=== PATIENT | female | born 1950 | race African-American/Black ===

== ENCOUNTER 2017-04-21 18:35 | Inpatient (IN) | payer OTHER ==
[~2017-04-21] VITALS: Ht 157.5 cm; Wt 126.3 kg
[~2017-04-21 18:35] MED LIST: COMPAZINE10 MG PO; Decadron PO; Diabeta,Micronase PO; GABAPENTIN300 MG PO; GLYBURIDE1.25 MG PO; Glucophage PO; Keppra PO; LISINOPRIL-HCT1 EACH PO; PERCOCET 5/31 TABLET PO; Tylenol/Codeine #3 PO; Zestoretic,Prinzide PO
[2017-04-21 18:56] LABS: EOSINOPHIL (%) 0.6 % (0-5); EOSINOPHIL COUNT 0.1 K/uL (0-0.3); HEMATOCRIT 33.8 % (36.0-46.0); IMMATURE GRANULOCYTE (%) 0.7 % (0.0-0.7); IMMATURE GRANULOCYTE COUNT 0.1 K/uL; INSTRUMENT ABS NEUTROPHIL CT 11.5 K/uL; LYMPHOCYTE COUNT 2.3 K/uL (1.0-2.8); MCH 24.1 PG (29.0-34.0); MCHC 29.3 G/DL (30.0-36.0); MCV 82.2 FL (83-99); MEAN PLAT.VOLUME 10.5 uM^3 (9.5-12.4); MONOCYTE (%) 4.6 % (3-12); MONOCYTE COUNT 0.7 K/uL (0-0.8); NEUTROPHIL (%) 78.5 % (45-76); NEUTROPHIL COUNT 11.5 K/uL (1.8-6.4); PLATELET COUNT 254 K/uL (156-360); RBC DIS.WIDTH-CV 14.9 % (11.8-14.6); RED BLOOD COUNT 4.11 M/uL (3.80-5.20); WHITE BLOOD COUNT 14.7 K/uL (4.1-10.2)
[2017-04-21 19:15] LABS: AMYLASE 87 IU/L (1-118); CHLORIDE 109 mEq/L (99-109); POTASSIUM 4.1 mEq/L (3.7-5.4); SODIUM 141 mEq/L (136-147)
[2017-04-21 19:17] LABS: GLUCOSE 233 mg/dL (70-99)
[2017-04-21 19:18] LABS: ANION GAP 13 MEQ/L (2-14)
[2017-04-21 19:20] LABS: SERUM ETHYL ALCOHOL < 10 mg/dL
[2017-04-21 19:21] LABS: GFR ESTIMATE (CALCULATED) 41 mL/min/
[2017-04-21 19:22] LABS: UREA NITROGEN (BUN) 25 mg/dL (9-23)
[2017-04-21 19:24] LABS: LIPASE 41 U/L (1.0-51.0)
[2017-04-21] MEDS ORDERED: lipitor (23:21)
[2017-04-21 23:30] VITALS: BP 121/68
[2017-04-21 23:45] VITALS: BP 146/78
[2017-04-22] VITALS (20 sets, daily range): BP systolic 98–172; BP diastolic 54–104
[2017-04-22 01:23] LABS: CHLORIDE 117 mEq/L (99-109); POTASSIUM 4.6 mEq/L (3.7-5.4); SODIUM 141 mEq/L (136-147)
[2017-04-22 01:24] LABS: GLUCOSE 153 mg/dL (70-99)
[2017-04-22 01:26] LABS: ANION GAP 7 MEQ/L (2-14)
[2017-04-22 01:28] LABS: GFR ESTIMATE (CALCULATED) 48 mL/min/
[2017-04-22 01:29] LABS: UREA NITROGEN (BUN) 24 mg/dL (9-23)
[2017-04-22 01:30] LABS: METH RESISTANT S AUREUS PCR NEGATIVE (NEGATIVE); PROBE CHECK PASS; SPECIMEN PROCESSING CONTROL PASS
[2017-04-22 07:42] LABS: MCH 25.1 PG (29.0-34.0); MCHC 30.4 G/DL (30.0-36.0); MCV 82.6 FL (83-99); MEAN PLAT.VOLUME 10.5 uM^3 (9.5-12.4); PLATELET COUNT 186 K/uL (156-360); RBC DIS.WIDTH-CV 15.1 % (11.8-14.6); RBC DIS.WIDTH-SD 46.1 % (39-53); RED BLOOD COUNT 3.39 M/uL (3.80-5.20); WHITE BLOOD COUNT 8.5 K/uL (4.1-10.2)
[2017-04-22 07:59] LABS: ANION GAP 8 MEQ/L (2-14); CHLORIDE 116 MEQ/L (99-109); POTASSIUM 4.3 MEQ/L (3.7-5.4); SAMPLE HEMOLYSIS CHECK 0; SAMPLE ICTERIC CHECK 0; SAMPLE LIPEMIA CHECK 0; SODIUM 145 MEQ/L (136-147); TOTAL BILIRUBIN 0.3 MG/DL (0.0-1.0)
[2017-04-22 08:04] LABS: ALKALINE PHOSPHATASE 83 IU/L (3-129); GFR ESTIMATE (CALCULATED) 53 mL/min/; GLUCOSE 122 mg/dL (70-99); UREA NITROGEN (BUN) 24 mg/dL (9-23)
[2017-04-22 09:28] LABS: Estimated Average Glucose 154 mg/dL (70-123)
[2017-04-22 12:13] LABS: POINT-OF-CARE METER ID UU13113731; POINT-OF-CARE USER ID 606021424
[2017-04-22 15:36] LABS: POINT-OF-CARE METER ID UU13113731; POINT-OF-CARE USER ID 606021424
[2017-04-22 21:52] LABS: POINT-OF-CARE METER ID UU13113731
[2017-04-23] VITALS (14 sets, daily range): BP systolic 121–155; BP diastolic 62–89
[2017-04-23 11:47] LABS: POINT-OF-CARE METER ID UU13113731
[2017-04-23 12:25] LABS: ANION GAP 8 MEQ/L (2-14); CHLORIDE 113 MEQ/L (99-109); GFR ESTIMATE (CALCULATED) 58 mL/min/; GLUCOSE 174 mg/dL (70-99); MAGNESIUM 1.8 mg/dl (1.3-2.7); POTASSIUM 4.5 MEQ/L (3.7-5.4); SAMPLE HEMOLYSIS CHECK 0; SAMPLE ICTERIC CHECK 0; SAMPLE LIPEMIA CHECK 0; SODIUM 141 MEQ/L (136-147); UREA NITROGEN (BUN) 22 mg/dL (9-23)
[2017-04-23] MEDS ORDERED: LEVETIRACETAM750 MG PO (15:18)
[2017-04-23] MEDS ORDERED: ZESTORETIC 10-1 EAC1 PO (15:18)
[2017-04-23] MEDS ORDERED: GLIPIZIDE5 MG PO (15:19)
[2017-04-23 15:59] LABS: POINT-OF-CARE METER ID UU13113748
[2017-04-23 22:42] LABS: POINT-OF-CARE METER ID UU13113803
[2017-04-24] VITALS (7 sets, daily range): BP systolic 115–165; BP diastolic 63–118
[2017-04-24 06:52] LABS: ANION GAP 10 MEQ/L (2-14); CHLORIDE 112 MEQ/L (99-109); GFR ESTIMATE (CALCULATED) 53 mL/min/; GLUCOSE 132 mg/dL (70-99); MCH 25.1 PG (29.0-34.0); MCV 83.8 FL (83-99); NRBC (%) 0.2 /100 WBC (0-0); POTASSIUM 4.2 MEQ/L (3.7-5.4); RBC DIS.WIDTH-CV 15.4 % (11.8-14.6); RBC DIS.WIDTH-SD 46.4 % (39-53); RED BLOOD COUNT 3.34 M/uL (3.80-5.20); SAMPLE HEMOLYSIS CHECK 0; SAMPLE ICTERIC CHECK 0; SAMPLE LIPEMIA CHECK 0; SODIUM 140 MEQ/L (136-147); UREA NITROGEN (BUN) 21 mg/dL (9-23); WHITE BLOOD COUNT 11.6 K/uL (4.1-10.2)
[2017-04-24 07:50] LABS: HEMATOLOGY COMMENT 1 SMEAR COMPATIBLE; PLAT.SUFFICIENCY ADEQUATE; PLATELET COUNT 170 K/uL (156-360)
[2017-04-24 08:15] LABS: MEAN PLAT.VOLUME 12.5 uM^3 (9.5-12.4)
[2017-04-24 08:35] LABS: POINT-OF-CARE METER ID UU14162636
[2017-04-24 12:43] LABS: POINT-OF-CARE METER ID UU14162636
[2017-04-24 17:02] LABS: POINT-OF-CARE METER ID UU13113803
[2017-04-25] VITALS: BP 144/76
[2017-04-25 01:00] VITALS: BP 138/65
[2017-04-25 04:00] VITALS: BP 138/78
[2017-04-25 06:31] LABS: HEMATOCRIT 25.5 % (36.0-46.0); MCH 24.5 PG (29.0-34.0); MCHC 30.2 G/DL (30.0-36.0); MCV 81.2 FL (83-99); MEAN PLAT.VOLUME 10.6 uM^3 (9.5-12.4); PLATELET COUNT 199 K/uL (156-360); RBC DIS.WIDTH-SD 44.3 % (39-53); RED BLOOD COUNT 3.14 M/uL (3.80-5.20); WHITE BLOOD COUNT 12.1 K/uL (4.1-10.2)
[2017-04-25 07:49] LABS: POINT-OF-CARE METER ID UU14162636
[2017-04-25 08:00] VITALS: BP 161/113
[2017-04-25 12:00] VITALS: BP 181/80
== END 2017-04-25 12:15 | disposition short-term general hospital (02) | DRG 964 ==
LOC: TRA 18:35 → EDOF 21:00 → 4WEST 21:00 → ENRESERV 21:03 → 4WEST 23:29 → ENRESERV 23:55 → CANRESERV 23:55 → 4WEST 04-23 13:27
PROVIDERS: Emergency Medicine; Internal Medicine Pulmonary Disease; Nurse Practitioner Adult Health; Specialist; Surgery
DX: S42.402A Unspecified fracture of lower end of left humerus, initial encounter for closed fracture (principal); S06.6X9A Traumatic subarachnoid hemorrhage with loss of consciousness of unspecified duration, initial encounter; S52.612A Displaced fracture of left ulna styloid process, initial encounter for closed fracture; S27.0XXA Traumatic pneumothorax, initial encounter; S52.202A Unspecified fracture of shaft of left ulna, initial encounter for closed fracture; N17.9 Acute kidney failure, unspecified; S06.2X9A Diffuse traumatic brain injury with loss of consciousness of unspecified duration, initial encounter; S22.32XA Fracture of one rib, left side, initial encounter for closed fracture; E11.40 Type 2 diabetes mellitus with diabetic neuropathy, unspecified; S22.21XA Fracture of manubrium, initial encounter for closed fracture; G40.909 Epilepsy, unspecified, not intractable, without status epilepticus; S53.125A Posterior dislocation of left ulnohumeral joint, initial encounter; V47.5XXA Car driver injured in collision with fixed or stationary object in traffic accident, initial encounter; Y92.410 Unspecified street and highway as the place of occurrence of the external cause; M50.30 Other cervical disc degeneration, unspecified cervical region; Z68.43 Body mass index [BMI] 50.0-59.9, adult; E66.9 Obesity, unspecified; I10 Essential (primary) hypertension; D64.9 Anemia, unspecified; I73.9 Peripheral vascular disease, unspecified; G93.89 Other specified disorders of brain; M77.9 Enthesopathy, unspecified; M43.00 Spondylolysis, site unspecified; M19.90 Unspecified osteoarthritis, unspecified site; E88.09 Other disorders of plasma-protein metabolism, not elsewhere classified; Z90.11 Acquired absence of right breast and nipple; Z85.3 Personal history of malignant neoplasm of breast; Z79.899 Other long term (current) drug therapy; Z90.49 Acquired absence of other specified parts of digestive tract; Z92.21 Personal history of antineoplastic chemotherapy
CPT/HCPCS: 70450; 71010; 71260; 72125; 73070; 73080; 73090; 73100; 73130; 73200; 73610; 73630; 74177; 80048; 80048 91; 80053; 81003; 82150; 82948; 83036; 83690; 83735; 85025; 85027; 86850; 86900; 86901; 87641; 97530 GO; 97530 GP; C9113; G0480; J1815; J2250; J2270; J2405; J2704; J3010; J7030